=== PATIENT | female | born 1980 | race Caucasian/White ===

== ENCOUNTER 2017-05-10 17:49 | Emergency (ER) | payer MEDICAID ==
[2017-05-10] MEDS ORDERED: ONDANSETRON 4 MG TAB.RAPDIS PO ONE (19:27)
[2017-05-10] MEDS ORDERED: ACETAMINOPHEN 325 MG TABLET PO ONE (19:27)
[2017-05-10] MEDS ORDERED: NORMAL SALINE 1000 ML 1,000 ML IV ONE (19:29)
--- NOTE | 2017-05-10 19:30 | ER Document Report ---
ED Medical Screen (RME) - General Chief Complaint: Abdominal Pain Stated Complaint: ABDOMINAL PAIN Time Seen by Provider: 05/10/17 19:26 Notes: 37 year old female, chief complaint of lower abdominal pain, reports pain for 1 week, states it is worst in mid to lower right abdomen. Began having a fever today, referred by PCP to the ED today. Reports nausea today, no vomiting. Denies vaginal bleeding, discharge, or dysuria. Intermittent flank pain. PMH tubal ligation. TRAVEL OUTSIDE OF THE [place] IN LAST 30 DAYS: No - Related Data Allergies/Adverse Reactions: No Known Allergies Allergy (Verified 05/10/17 17:49) Home Medications: Current Home Medications Albuterol Sulfate [Proair HFA] 1 - 2 puff IH Q4 PRN 05/10/17 [History] Fluticasone Propionate [Flovent HFA 220 mcg MDI] 2 puff IH BID 05/10/17 [History ] Montelukast Sodium [Singulair 10 mg Tablet] 10 mg PO DAILY 05/10/17 [History] Past Medical History - Social History Chew tobacco use (# tins/day): No Frequency of alcohol use: Occasional Drug Abuse: None Renal/ Medical History: Denies: Hx Peritoneal Dialysis Physical Exam - Vital signs Vitals: Temp Pulse Resp BP Pulse Ox 100.2 F 77 17 156/75 H 99 05/10/17 18:07 05/10/17 18:07 05/10/17 18:07 05/10/17 18:07 05/10/17 18:07 - Abdominal Tenderness: Tender - tender generally in lower abdomen, nonspecific but limited due to sitting position Course - Vital Signs Vital signs: Temp Pulse Resp BP Pulse Ox 100.2 F 77 17 156/75 H 99 05/10/17 18:07 05/10/17 18:07 05/10/17 18:07 05/10/17 18:07 05/10/17 18:07
[2017-05-10 20:38] LABS: ABSOLUTE BASOPHILS # (AUTO) 0.1 10^3/uL (0.0-0.2); ABSOLUTE EOSINOPHILS # (AUTO) 0.1 10^3/uL (0.0-0.6); ABSOLUTE LYMPHOCYTES (AUTO) 3.1 10^3/uL (0.5-4.7); ABSOLUTE MONOCYTES (AUTO) 0.5 10^3/uL (0.1-1.4); ABSOLUTE NEUT (AUTO) 5.6 10^3/uL (1.7-8.2); BASOPHILS % (AUTO) 0.6 % (0-2); EOSINOPHILS % (AUTO) 1.2 % (0-6); HEMATOCRIT 35.6 % (36.0-47.0); HEMOGLOBIN 12.1 g/dL (12.0-15.5); HGB HCT DIFFERENCE 0.7; LYMPHOCYTES % (AUTO) 32.6 % (13-45); MEAN CORPUSCULAR HEMOGLOBIN 26.2 pg (27.0-33.4); MEAN CORPUSCULAR HGB CONC 34.1 g/dL (32.0-36.0); MEAN CORPUSCULAR VOLUME 77 fl (80-97); MONOCYTES % (AUTO) 5.8 % (3-13); RED BLOOD COUNT 4.64 10^6/uL (3.72-5.28); RED CELL DISTRIBUTION WIDTH 14.3 % (11.5-14.0); SEGMENTED NEUTROPHILS % (AUTO) 59.8 % (42-78); WHITE BLOOD COUNT 9.4 10^3/uL (4.0-10.5)
[2017-05-10 20:45] LABS: APPEARANCE,URINE CLEAR; BILIRUBIN,URINE NEGATIVE (NEGATIVE); GLUCOSE, URINE NEGATIVE (NEGATIVE); KETONES,URINE NEGATIVE (NEGATIVE); LEUKOCYTE ESTERASE,URINE NEGATIVE (NEGATIVE); NITRITE,URINE NEGATIVE (NEGATIVE); PROTEIN,URINE NEGATIVE (NEGATIVE); URINE SPECIFIC GRAVITY 1.009; UROBILINOGEN,URINE NEGATIVE mg/dL (<2.0)
[2017-05-10 20:57] LABS: ALANINE AMINOTRANSFERASE 18 U/L (9-52); ALBUMIN 4.6 g/dL (3.5-5.0); ALKALINE PHOSPHATASE 66 U/L (38-126); ANION GAP 14 (5-19); ASPARTATE AMINO TRANSFERASE 20 U/L (14-36); BILIRUBIN,DIRECT 0.3 mg/dL (0.0-0.4); BILIRUBIN,TOTAL 0.3 mg/dL (0.2-1.3); BLOOD UREA NITROGEN 9 mg/dL (7-20); CALCIUM 9.4 mg/dL (8.4-10.2); CARBON DIOXIDE 25 mmol/L (22-30); CHLORIDE 101 mmol/L (98-107); CREATININE RESULT 0.62 mg/dL (0.52-1.25); GLUCOSE 97 mg/dL (75-110); POTASSIUM 3.7 mmol/L (3.6-5.0); SODIUM 139.6 mmol/L (137-145); TOTAL PROTEIN 7.4 g/dL (6.3-8.2)
--- NOTE | 2017-05-10 23:43 | ER Document Report ---
ED General - General Chief Complaint: Abdominal Pain Stated Complaint: ABDOMINAL PAIN Time Seen by Provider: 05/10/17 19:26 Notes: Patient is 37-year-old female who presents with complaints of pain in the right lower quadrant. Says pain has been there for the last 5 days. It has started to become worse. It hurts over the right side. Says certain movements hurt. No fevers today. No vomiting. No diarrhea. No abnormal vaginal discharge or bleeding. Only previous surgeries tubal ligation. No dysuria. No other complaints this time. She is otherwise healthy. Is sexually monogamous. She denies any concerns for sexual transmitted diseases. TRAVEL OUTSIDE OF THE [place] IN LAST 30 DAYS: No - Related Data Allergies/Adverse Reactions: No Known Allergies Allergy (Verified 05/10/17 17:49) Home Medications: Current Home Medications Albuterol Sulfate [Proair HFA] 1 - 2 puff IH Q4 PRN 05/10/17 [History] Fluticasone Propionate [Flovent HFA 220 mcg MDI] 2 puff IH BID 05/10/17 [History ] Montelukast Sodium [Singulair 10 mg Tablet] 10 mg PO DAILY 05/10/17 [History] Past Medical History - Social History Smoking Status: Never Smoker Chew tobacco use (# tins/day): No Frequency of alcohol use: Occasional Drug Abuse: None Family History: Reviewed & Not Pertinent Patient has suicidal ideation: No Patient has homicidal ideation: No Renal/ Medical History: Denies: Hx Peritoneal Dialysis Review of Systems - Review of Systems Notes: My Normal Review Basic REVIEW OF SYSTEMS: CONSTITUTIONAL : Denies fever, chills, or sweats. Denies recent illness. EENT: Denies eye, ear, throat, or mouth pain or symptoms. Denies nasal or sinus congestion. RESPIRATORY: Denies cough, cold, or chest congestion. Denies shortness of breath, difficulty breathing, or wheezing. GASTROINTESTINAL: Right lower quadrant abdominal pain. GENITOURINARY: Denies difficulty urinating, painful urination, burning, frequency, or blood in urine. FEMALE GENITOURINARY: Denies vaginal bleeding, abnormal or irregular periods. MUSCULOSKELETAL: Denies neck or back pain or joint pain or swelling. SKIN: Denies rash or skin lesions. NEUROLOGICAL: Denies altered mental status or loss of consciousness. Denies headache. Denies weakness or paralysis or loss of use of either side. Denies problems with gait or speech. Denies sensory or motor loss. ALL OTHER SYSTEMS REVIEWED AND NEGATIVE. Physical Exam - Vital signs Vitals: Temp Pulse Resp BP Pulse Ox 100.2 F 77 17 156/75 H 99 05/10/17 18:07 05/10/17 18:07 05/10/17 18:07 05/10/17 18:07 05/10/17 18:07 - Notes Notes: General Appearance: Well nourished, alert, cooperative, no acute distress, mild obvious discomfort. Vitals: reviewed, See vital signs table. Head: no swelling or tenderness to the head Eyes: PERRL, EOMI, Conjuctiva clear Mouth: No decreasd moisture Lungs: No wheezing, No rales, No rhonci, No accessory muscle use, good air exchange bilaterally. Heart: Normal rate, Regular rythm, No murmur, no rub Abdomen: Normal BS, soft, No rigidity, moderate right lower quadrant abdominal tenderness to palpation. Mild suprapubic tenderness palpation. Patient has some pain with pushing over left lower quadrant but says actually hurts in the right lower quadrant when I push on her left lower quadrant., No guarding, no rebound, no abdominal masses, no organomegaly Pelvic exam: Normal external genitalia. No blood in vaginal vault. No abnormal discharge. No pain during exam. Extremities: strength 5/5 in all extremities, good pulses in all extremities, no swelling or tenderness in the extremities, no edema. Skin: warm, dry, appropriate color, no rash Neuro: speech clear, oriented x 3, normal affect, responds appropriately to questions. Course - Re-evaluation Re-evalutation: 05/11/17 06:43 The exact cause the patient's pain is really unclear. She does not have severe pain. She did not require any pain medicine when she was here. Pain is reduced palpation. CT scan shows that patient is a normal appendix. She did have some fat stranding in the right adnexa according to the operations controller results. Ultrasound to show some perioral ovarian cystic structures. I did call and speak with the radiologist, Dr. Moore, and asked him that these could potentially represent tube ovarian abscess being that the patient does have some stranding in the same area. He said that they are really not consistent with tubo-ovarian abscess and that the wall is thin and the structure of the cysts seem more consistent with that of cyst versus an actual abscess. Pelvic exam is really nothing consistent with PID being of the patient does not have much pain on exam and not much discharge; however, patient does have the fat stranding on the CT scan therefore we will treat her. I did discuss the case with her machine stemmer, Dr. Lerma, who agrees with plan to treat the patient and they would follow-up closely in the office for reevaluation. Informed patient of the findings and the plan and she is agreeable to the plan. I encouraged her return to ER immediately if she has severe pain, vomiting, high fevers, or she feels unwell. She agrees with plan will be discharged home. Dictation of this chart was performed using voice recognition software; therefore, there may be some unintended grammatical errors. - Vital Signs Vital signs: Temp Pulse Resp BP Pulse Ox 98.1 F 65 16 118/62 100 05/11/17 05:41 05/11/17 05:41 05/11/17 05:41 05/11/17 05:41 05/11/17 05:41 - Laboratory Result Diagrams: 05/10/17 20:10 05/10/17 20:10 Laboratory results interpreted by me: 05/10/17 20:10 Hct 35.6 L MCV 77 L MCH 26.2 L RDW 14.3 H Discharge - Discharge Clinical Impression: Abdominal pain Qualifiers: Abdominal location: right lower quadrant Qualified Code(s): R10.31 - Right lower quadrant pain Condition: Good Disposition: HOME, SELF-CARE Additional Instructions: Please take the antibiotics as prescribed. Please be aware that the antibiotics can cause your skin to be sensitive to the sun so do not allow your skin to be exposed to the sun for too long without wearing sunscreen. As discussed with you the CT scan showed a normal appearing appendix but you do have some inflammation in the right adnexa. This could be a sign of an infection. We have therefore placed you on an antibiotics. I did discuss the case with the machine stemmer who agrees with the antibiotic and agrees to have [facility]. Please return to the ER immediately if you have fevers, worsening pain, vomiting, or feel unwell. Prescriptions: Doxycycline Hyclate 100 mg PO BID #14 capsule Forms: Return to Work Referrals: HIRNE HAWTHORNE, [facility] [Primary Care Provider] - Follow up as needed GHANSHYAM LERMA MD [ACTIVE STAFF] - 05/13/17
--- NOTE | 2017-05-11 03:03 | RADIOLOGY REPORT (SQ) ---
Exam: CT abdomen pelvis with contrast. INDICATION: Right lower quadrant abdominal pain. COMPARISON: Pelvic sonogram, same day. TECHNIQUE: 88 mL Isovue-370, coronal and sagittal reformatted, 1097 DLP dose reduction. Limitations: None. FINDINGS: Small cystic components of the right adnexa measure 2.3 cm and 2.0 cm with mild surrounding fat streaking associated with the right broad ligament. No significant free fluid. Bilateral tubal ligation clips. Normal appendix. Inferior chest, liver, spleen, adrenals, gallbladder, pancreas, renal system, remaining pelvic organs, vasculature, and bony skeleton appear otherwise unremarkable. IMPRESSION: Mild inflammation associated with the right adnexa as correlated with pelvic sonogram may indicate pelvic inflammatory disease.
--- NOTE | 2017-05-11 03:11 | RADIOLOGY REPORT (SQ) ---
EXAM DESCRIPTION: U/S NON OB PEL TV W/DOPPLER CLINICAL HISTORY: 37 years, Female, RLQ pain COMPARISON: None. TECHNIQUE: Transvaginal. LIMITATIONS: None. FINDINGS: 10.6 cm uterus, 1.4 cm thickness of the endometrial stripe, nabothian cysts, 5.5 x 4.2 x 3.5 cm right ovary with cystic component measuring up to 2.3 cm and 2.1 cm within normal limits, 3.3 cm x 1.9 x 1.4 left ovary. Doppler flow demonstrated in both ovaries. Minimal free fluid in the posterior cul-de-sac. IMPRESSION: Normal pelvic sonogram. Please also see concurrent CT report. 2011 [employer]- All Rights Reserved
[2017-05-11] MEDS ORDERED: CEFTRIAXONE INJ 250 MG VIAL IM ONE (05:05)
[2017-05-11] MEDS ORDERED: DOXYCYCLINE HYCLATE 100 MG TABLET PO ONE (05:07)
[2017-05-11 05:43] VITALS: BP 118/62
== END 2017-05-11 05:43 | disposition home or self-care (01) ==
LOC: ER 17:49
DX: R10.31 Right lower quadrant pain (principal); Z79.899 Other long term (current) drug therapy
CPT/HCPCS: 99284; 96372; 96360; 36415; 87210; 84703; 85025; 80053; 81001; 87491; 87591; 76830; 93976; 74177; J3490 ×2; S0119; J7030; J0696